=== PATIENT | female | born 1995 | race Caucasian/White ===

== ENCOUNTER 2020-12-04 16:18 | Outpatient (REF) | payer MEDICAID, SELFPAY | END 2020-12-04 16:19 | disposition home or self-care (01) | LOC: HO.LAB 16:18 | PROVIDERS: Visit Provider Internal Medicine | DX: Z20.822 Contact with and (suspected) exposure to COVID-19 (principal) | CPT/HCPCS: 36415; C9803; U0003 ==

== ENCOUNTER 2022-10-05 13:19 | Outpatient (REF) | payer MEDICAID, SELFPAY ==
--- NOTE | ~2022-10-05 | US_ITS ---
EXAMINATION: US DIAGNOSTIC ULTRASOUND BREAST, RIGHT US DIAGNOSTIC ULTRASOUND BREAST, LEFT CLINICAL INFORMATION: 27-year-old with chronic intermittent milky/greenish nipple discharge since approximately 3 years ago. Small palpable area of fullness noted by patient 12:00 position right breast. No prior breast imaging. COMPARISON: None. TECHNIQUE: Ultrasound of both breasts is performed using grayscale imaging and color Doppler without and with harmonics. Bilateral retroareolar and circumferential periareolar imaging is performed. In addition, focal targeted imaging right breast in the area of palpable concern is performed. FINDINGS: Right: There is no focal suspicious finding. There is no solid mass, architectural abnormality, duct ectasia, or edema in the soft tissue planes. There is an incidental simple cyst at site of palpable concern 12:00 position anterior breast measuring approximately 0.7 x 0.4 cm. Cyst is anechoic and shows increased through-transmission of sound and no color flow. Left: There is no focal suspicious finding. There is no cystic or solid mass, architectural abnormality, duct ectasia, or edema in the soft tissue planes. Results are discussed with the patient at time of visit. US/US breast LT limited IMPRESSION: Right: -Incidental simple at site of palpable concern 12:00 position, measuring 0.7 x 0.4 cm. Left: -Unremarkable left breast ultrasound. ASSESSMENT: BI-RADS 2: Benign RECOMMENDATION: 1. Patient's chronic bilateral milky/green nipple discharge may be correlated with laboratories for possible systemic hormonal etiology. 2. Otherwise, routine annual screening mammography, beginning age 40, or earlier as clinical risk factors warrant. This patient's information was entered into a reminder system with a target due date for their next mammogram.
--- NOTE | ~2022-10-05 | US_ITS ---
EXAMINATION: US DIAGNOSTIC ULTRASOUND BREAST, RIGHT US DIAGNOSTIC ULTRASOUND BREAST, LEFT CLINICAL INFORMATION: 27-year-old with chronic intermittent milky/greenish nipple discharge since approximately 3 years ago. Small palpable area of fullness noted by patient 12:00 position right breast. No prior breast imaging. COMPARISON: None. TECHNIQUE: Ultrasound of both breasts is performed using grayscale imaging and color Doppler without and with harmonics. Bilateral retroareolar and circumferential periareolar imaging is performed. In addition, focal targeted imaging right breast in the area of palpable concern is performed. FINDINGS: Right: There is no focal suspicious finding. There is no solid mass, architectural abnormality, duct ectasia, or edema in the soft tissue planes. There is an incidental simple cyst at site of palpable concern 12:00 position anterior breast measuring approximately 0.7 x 0.4 cm. Cyst is anechoic and shows increased through-transmission of sound and no color flow. Left: There is no focal suspicious finding. There is no cystic or solid mass, architectural abnormality, duct ectasia, or edema in the soft tissue planes. Results are discussed with the patient at time of visit. US/US breast RT limited IMPRESSION: Right: -Incidental simple at site of palpable concern 12:00 position, measuring 0.7 x 0.4 cm. Left: -Unremarkable left breast ultrasound. ASSESSMENT: BI-RADS 2: Benign RECOMMENDATION: 1. Patient's chronic bilateral milky/green nipple discharge may be correlated with laboratories for possible systemic hormonal etiology. 2. Otherwise, routine annual screening mammography, beginning age 40, or earlier as clinical risk factors warrant. This patient's information was entered into a reminder system with a target due date for their next mammogram.
== END 2022-10-05 13:20 | disposition home or self-care (01) ==
LOC: HO.MAMMO 13:19
PROVIDERS: PCP General Practice; Visit Provider Internal Medicine
DX: N63.15 Unspecified lump in the right breast, overlapping quadrants (principal); N64.52 Nipple discharge
CPT/HCPCS: 76642

== ENCOUNTER 2023-10-12 11:10 | Outpatient (REF) | payer MEDICAID, SELFPAY ==
--- NOTE | ~2023-10-12 | XR_ITS ---
EXAMINATION: XR CHEST CLINICAL INFORMATION: Estimated wheezing COMPARISON: None available. TECHNIQUE: 2 views of the chest were obtained. FINDINGS: No significant abnormality is noted involving the heart, lungs, mediastinum, bony thorax or soft tissues. XR/XR chest 2V IMPRESSION: Unremarkable chest examination.
[2023-10-12 13:35] LABS: Estimated Average Glucose 100 mg/dL; Hemoglobin A1c % 5.1 % (<6.0)
[2023-10-12 13:43] LABS: Alanine Aminotransferase 11 U/L (0-31); Albumin Level 4.6 g/dL (3.5-5.0); Alkaline Phosphatase 94 U/L (39-117); Anion Gap 9 (12-20); Aspartate Amino Transferase 17 U/L (5-31); Bilirubin Total 0.7 mg/dL (0.0-1.0); Blood Urea Nitrogen 9 mg/dL (9-16); Carbon Dioxide 27 mmol/L (22-29); Chloride 106 mmol/L (96-108); Cholesterol 171 mg/dL (<200); Estimated Glomerular Filt Rate > 60; Glucose Random 83 mg/dL (60-115); HDL Cholesterol 53 mg/dL (>40); LDL Cholesterol Calculated 108 mg/dL (<100); Potassium 4.2 mmol/L (3.3-5.1); Sodium 138 mmol/L (135-145); Total Protein 8.2 g/dL (6.5-8.0); Triglycerides 51 mg/dL (<150)
[2023-10-14 10:23] LABS: TS Negative Control Passed; TS Panel A 0; TS Panel B 0; TS Positive Control Passed; TSpotTB Negative (Negative)
== END 2023-10-12 11:11 | disposition home or self-care (01) ==
LOC: HO.HHCL 11:10
PROVIDERS: Visit Provider General Practice
DX: Z02.1 Encounter for pre-employment examination (principal); Z11.1 Encounter for screening for respiratory tuberculosis; R06.2 Wheezing
CPT/HCPCS: 36415; 71046; 80053; 80061; 83036; 86481

== ENCOUNTER 2025-08-01 14:01 | Outpatient (REF) | payer MEDICAID, SELFPAY ==
--- OUTSIDE RECORDS SUMMARY | 2017-08-11 09:00 | XMS_ITS | Continuity of Care Document ---
Author Organization Formerly [facility] Address [address] [place] [address] Phone Care Team Providers Care Quality Systems Manager Name Role Phone Christiano Bazzi MD, Tarik Unavailable Unava ilable Allergies, Adverse Reactions, Alerts Substance Reaction Status Criticality No Known Allergies Active No Inform ation Medications Medication Instructions Dosage Effective Dates (start - stop) Status Comments loratadine 10 mg tablet take 1 tablet by oral route every day 10 MG - Active Problems Condition Type Effective Dates (start - stop) Clini kayce Status Comments No Known Problems Procedures Procedure Date OFFICE/OUTPATIENT VISIT, [facility] Advance Directives Directive Yes / No Effective Date File Name No Information Encounters Encounter Description Practice Location Reason(s) For Visit Diagnoses Date Provider Providers Copied on Encounter OFFICE/OUTPAT IENT VISIT, [facility], [address] [place], [place], [id number], [place] tel:[phone] Formerly [facility] cold symptoms (chief complaint)S td screen (chief complaint) Body mass index (BMI) 22.0-22.9, adultAcute URIEncounter for STD screening Christiano Montanez. [address], [place], [place], [id number], [place]. tel:[phone] Family History Family Member Type Diagnosis Age At Onset No Information Payers Payer name Insurance type Covered republican ID Authoriza tion(s) No Information Social History Type Description Quantity Date Captured Comments Alcohol Use Details yumiko Caffeine Use Details Unknown Tobacco Use Status No Information Smoking Status Never smoker Non-Smoking Tobacco Use Details : No Details Available : No Details Available Sex Female Vital Signs Date / Time: Height Weight BMI Pulse Rate Blood Pressure Temperature Respiratory Rate Body Surface Area Head Circumference Head Circ. Percentile Wt./Jose. Percentile BMI percentile Pulse Ox Inhaled Ox 1:12 PM 61.75 in 56.245 kg (124.00 lbs) 22.8 6 kg/m eter (2) 88 /min 119/81 mm[Hg] 99.50 F 1.57 meter(2) 98 % Chief Complaint And Reason For Visit From encounter dated '08/11/2017 13:00'. cold symptoms (chief complaint). Description: Onset: 4 days ago. The problem has become gradually worse. Relieving factors include decongestants. Associated symptoms include nasal congestion, rhinitis and sore throat. Pertinent negatives include chills, cough and fever. Additional information: (L) EAR DISCOMFORT took XL3 +ear pain. Std screen (chief complaint). Description: Patient with previously tested positive for herpes, no other hx of STDs. Denies symptoms, is sexually acitve and uses protection. Reason For Referral Reason For Referral No Information Plan Of Treatment Date Type Action Status Goal PAP. Due on due Goal Lifestyle education regardin g diet completed Future Order: Lab Order RPR ([id number]), Appointment on: Ordered Future Order: Lab Order HIV 1,2 Ag/Ab w/reflex ([id number]), Appointment on: Ordered Future Order: Lab Order GC/CT Am plification ([id number]), Appointment on: , Collected on: Ordered History Of Present Illness Encounter Date Complaint History Of Prese nt Illness cold symptoms Onset: 4 days ag o. The problem has become gradually worse. Relieving factors include decongestants. Associated symptoms include nasal congestion, rhinitis and sore throat. Pertinent negatives include chills, cough and fever. Additional information: (L) EAR DISCOMFORT took XL3 +ear pain. Std screen Patient with pre viously tested positive for herpes, no other hx of STDs. Denies symptoms, is sexually acitve and uses protection. Functional Status Date Functional Assessmen t No Information Instructions Date Instruction Additional Infor carmen Lifestyle education regarding di et Related to Body mass index (BMI) 22.0-22.9, adult Assessments Type Assessment Date assessment Body mass index (BMI) 22.0-22.9, adult assessment Acute URI assessment Encounter for STD screening impression Acute URI will harrison mo sypmtomatic treatment with tylenol/nsaids for sore throat impression Per pt. request Patient Care Teams Name Effective Dates (start - stop) Status Members No Information
--- OUTSIDE RECORDS SUMMARY | 2025-08-01 17:52 | XMS_ITS | Encounter Summary ---
Author Organization [employer] Address [address] [place] [address] Care Team Providers Care Farm Equipment Engineer Name Role Phone Maria Eugenia Thrasher MD Primary Care Provider [phone] Reason for Visit * Reason Onset Date Comments Walk-In 08/01/2025 Encounter Details Date Type Department Care Team ([facility] st Contact Info) Description 08/01/2025 Telephone [facility] [address] [place] [address] Rebekah Clarke RN [address] [place] [address] Walk-In Social History Tobacco Use Types Packs/Day Years Used Date Smoking Tobacco: Never Smokeless Tobacco: Never Alcohol Use Standard Drinks/Week Comments Never 0 (1 standard drink = 0.6 oz pur e alcohol) Alcohol Answer Date Recorded How often do you have a drink containing alcohol ? 2 02/04/2025 How many drinks containing a lcohol do you have on a typical day when you are drinking? 1 02/04/2025 How often do you have six or more drinks on one occasion? 0 02/04/2025 Depression Answer Date Recorded Patient Health Questionnaire-9 Score 4 02/04/2025 Patient Health Questionnaire-9 Score 4 02/04/2025 Last PHQ-9: Questionnaire Data Not on file 0 02/04/2025 Housing Stability Answer Date Recorded What is your housing situation today? I have maria isabel maloney 10/04/[address] you li ve. Do you have problems with any of the following? Pests such as bugs, ants, or mice 10/04/2024 Food Insecurity Answer Date Recorded Within the past 12 months, y ou worried that your food would run out before you got money to buy more: Never True 09/26/2023 Within the past 12 months,th e food you bought just didn't last and you didn't have enough money to get more: Never True 04/2023 Transportation Answer Date Recorded In the past 12 months, has l ack of transportation kept you from medical appts, meetings, work or from getting things needed for daily living? No 10/04/2024 Intimate Partner Violence Answer Date R ecorded Within the last year, have y ou been afraid of your partner or ex-partner? 2 02/04/2025 Within the last year, have y ou been humiliated or emotionally abused in other ways by your partner or ex-partner? 2 Within the last year, have y ou been kicked, hit, slapped, or otherwise physically hurt by your partner or ex-partner? 2 02/04/2025 Within the last year, have y ou been raped or forced to have any kind of sexual activity by your partner or ex-partner? 2 02/04/2025 Utilities Answer Date Recorded In the past 12 months, has t he electric, gas, oil or water company threatened to shut off services in your home? No 09/26/2023 Depression Answer Date Recorded Patient Health Questionnaire-2 Score 2 02/04/2025 Internet Access Answer Date Recorded Internet Access Q1 Yes 10/04/2024 Internet Access Q2 Not on file 10/04/2024 Comments No Sex and Gender Information Value Date Recorded Sex Assigned at Female 09/20/2022 10:16 AM EDT Legal Sex Female 10:16 AM EDT Gender Identity Female 09/20/2022 10:16 AM EDT Sexual Orientation Straight 09/20/2022 10 :16 AM EDT documented as of this encounter Miscellaneous Notes * Telephone Encounter - Rebekah Clarke RN - 08/01/2025 1:45 PM EDT Pt. Walked in reporting + positive test at home yesterday. Reports LMP around July 10. Pt. Reports nausea x 4 days, one episode of vomiting today after drinking coffee. Pt. Also reportssome dizziness when walking, changing positions x 2 weeks. No dizziness at rest. Pt. Reports she had nexplanon put in February and has been having regular monthly periods since. This is pt.'s 2nd . Pt. Has been taking prenatals daily and does not need rx. Pt. Would like referral to [facility] ob[facility] if HCG is positive for care. Pt. Will go to lab now to get blood drawn and will accessresults via [employer], login confirmed Advised pt. To call clinic for or seek emergency care for vomiting >6 times/ day, unable to keepanything down, severe cramping or vaginal bleeding and she verbalizes understanding documented in this encounter Plan of Treatment Scheduled Orders Name Type Priority Associated Diagnoses Orde r Schedule hCG, Total, Quantitative Lab Routine Positive test Expected: 08/01/2025 (Approximate), Expires: 08/01/2026 documented as of this encounter Visit Diagnoses Diagnosis Positive test examination or test, positive result documented in this encounter Additional Health Concerns Assessment Noted Time PHQ-9 Depression Total Score: 4 02/05/20 25 3:06 PM EDT documented as of this encounter Care Teams Farm Equipment Engineer Relationship Specialty Start Date End Date Maria Eugenia Thrasher MD [address] [place] [address] PCP - General Family Medicine 05/14/22 documented as of this encounter
--- OUTSIDE RECORDS SUMMARY | 2025-08-01 17:52 | XMS_ITS | Clinical Summary ---
Author Organization [employer] Address 75 [facility] 7t [place] [address] Care Team Providers Care Greens Or Grounds Superintendent Name Role Phone Maria Eugenia Thrasher MD Primary Care Provider [phone] Allergies No known active allergies Medications Blood Pressure Monitoring (Blood Pressure Cuff) miscIndications: Elevated blood pressure reading in office without diagnosis of hypertension For use to monitor blood pressure daily 1 each 2 Active levonorgestrel-e thinyl estradiol (Aviane, Alesse, Lessina) 0.1-20 MG-MCG tablet Take 1 tablet by mouth in the morning. 84 tablet 3 Active busPIRone (Buspar) 5 MG tablet Take 2 tablets (10 mg) by mouth if needed each day (anxiety). 120 tablet 3 3 Active fluticasone (Flovent HFA) 110 MCG/ACT inhaler Inhale 1 puff every 12 (twelve) hours. 12 g 11 5 Active albuterol (ProAir HFA) 108 (90 Base) MCG/ACT inhaler Inhale 2 puffs every 4 (four) hours if needed for wheezing. 18 g 11 5 Active albuterol (2.5 MG/3ML) 0.083% nebulizer solution inhale 3 milliliter by nebulization route every 6 hours as needed 75 mL 11 5 Active 28-0.8 MG tablet Take 1 tablet by mouth Once per day. 90 tablet 3 5 026 Active Active Problems Problem Noted Date Diagnosed Date Family planning counseling 02/04/2025 Assessment & Plan (02/04/2025 3:11 PM EDT): Discussed cessation of marijuana smoking and alcohol Start PNV today Chest pain made worse by breathing 06/01/2024 Costochondritis 06/01/2024 Assessment & Plan (06/01/2024 3:58 PM EDT): Some localized tenderness to left sternum Trial ibuprofen 800 mg tid prn Rtc for worsening symptoms for failure to resolve Moderate asthma 06/01/2024 Assessment & Plan (02/04/2025 3:12 PM EDT): Continue Flovent BID, rinse mouth after usage Utilize rescue inhaler q 4-6 hours ED/UC return precautions Assessment & Plan (06/01/2024 3:57 PM EDT): Encouraged pt to abstain from smoking canibus, pt agreeable, Resume flovent BID, rinse out mouth after usage Utilize rescue inhaler q 4-6 hours prn. If symptoms worsen or fail to resolve rtc. Anxiety 02/24/2024 Assessment & Plan (02/04/2025 3:11 PM EDT): Continue f/u with therapist Declines medication renewal, feels mostly stable for now Assessment & Plan (02/24/2024 3:20 PM EDT): Continue f/u with therapist Housing or economic circumstance 10/05/2023 Palpitation 04/13/2023 Assessment & Plan (04/13/2023 4:25 PM EDT): TSH 1.82 10/2022 Will check CBC today Ordered 72 hour Holter monitor to rule out arrythmia Encounter for removal and reinsertion of Nexplan on 02/25/2023 Screening for cervical cancer 02/22/2023 Surveillance of implantable subdermal contracept sophia 02/22/2023 Assessment & Plan (04/13/2023 4:27 PM EDT): Use low dose OCPs to manage irregular periods/spotting on Nexplanon if needed Vitamin D deficiency 11/09/2016 Resolved Problems Problem Noted Date Diagnosed Date Resolved Date Mild persistent asthma without complication 11/10/2022 02/04/2025 Assessment & Plan (02/24/2024 3:20 PM EDT): Continue Flovent Continue ELDER PCV 20 today Assessment & Plan (04/13/2023 3:19 PM EDT): Continue Flovent Continue ELDER Encounters Date Type Department Care Team Description 08/01/2025 Orders Only [facility] MEDICINE [address] [place] [address] Maria Eugenia Thrasher MD 08/01/2025 Telephone [facility] MED[facility]INE [address] [place] [address] Rebekah Clarke RN Walk-In 08/01/2025 Travel from Last 3 Months Immunizations Immunization Administration Dates Next Due DTaP 01/21/2000, 7,1996,08/16,1996 HPV, Bivalent 04/21/2010,09/18/2009,04/25/2009 Hep B, adult 1996,1996,1996 Hib (HbOC) 01/27/2000,1996,1996 IPV 01/27/2008,03/19/2006,1996 Influenza injectable quadriv alent IIV4 with preservative 09/23/2015 Influenza injectable quadriv alent preservative free 10/03/2023,08/29/2020 Influenza live intranasal trivalent 09/03/2013 Influenza, live, intranasal 09/03/2013 MMR 01/27/2000,02/13/1997 Pfizer Covid-19 Vaccine 12+ yo-sucrose (Orr Cap) 07/22/2022,06/24/2022 Pneumococcal Conjugate PCV 20 02/24/2024 Pneumococcal Polysaccharide PPSV23 08/15/2019 Tdap 06/05/2019,09/30/2015,04/25/2009 Varicella 04/25/2009,04/24/2003 Social History Tobacco Use Types Packs/Day Years Used Date Smoking Tobacco: Never Smokeless Tobacco: Never Tobacco Cessation:Counseling Given: Not Answered Alcohol Use Standard Drinks/Week Comments Never 0 [...] Q2 Not on file 10/04/2024 Comments No Intention Date Recorded Wants to become (finding) 02/04 Sex and Gender Information Value Date Recorded Sex Assigned at Female 09/20/2022 10:16 AM EDT Legal Sex Female 10:16 AM EDT Gender Identity Female 09/20/2022 10:16 AM EDT Sexual Orientation Straight 09/20/2022 10 :16 AM EDT Last Filed Vital Signs Vital Sign Reading Time Taken Comments Blood Pressure 141/91 02/04/2025 1:28 PM EDT Pulse 99 02/04/2025 1:28 PM EDT Temperature 36 C (96.8 F) 02/04/2025 1:28 PM EDT Respiratory Rate 19 02/04/2025 1:28 PM EDT Oxygen Saturation 96% 06/01/2024 1:43 PM EDT Inhaled Oxygen Concentration - - Weight 87.5 kg (192 lb 12.8 oz) 02/04/2025 1:28 PM EDT Height 154.9 cm (5' 1 ) 02/04/2025 1:28 PM EDT Body Mass Index 36.43 02/04/2025 1:28 PM EDT Plan of Treatment Health Maintenance Due Date Last Done Comments Disability Screening 1996 COVID-19 Vaccine ( season) 2025 07/22/2022, 06/24/2022 Influenza Vaccine (#1) 2025 , 08/29/2020, 09/23/2015, Additional history exists SDOH Screening 10/04/2025 10/04/2024 Alcohol/Substance Use Screening 02/04/2026 02/04/2025 Depression Screening 02/04/2026 02/04/2025, 02/05/20 25 Family Planning (PISQ) 02/04/2026 02/04/2025 Tobacco Screening 02/04/2026 02/04/2025 Pap Smear 02/22/2026 02/22/2023, 02/22/2023 DTaP/Tdap/Td Vaccines (9 - Td or Tdap) 06/05/2029 06/05/2019, 09/30/2015, 04/25/2009, Additional history exists Zoster Vaccines (1 of 2) 2046 RSV Patients and Patients Aged 60 years or older (1 - 1-dose 75+ series) 2071 Hepatitis B Vaccines Completed 1996, 1996, 1996 HIB Vaccines Completed 01/27/2000, 07/23, 1996 IPV Vaccines Completed 01/27/2008, 02/20, 1996 HPV Vaccines Completed 04/21/2010, 08/22, 04/25/2009 HIV Screening Completed 11/08/2022 Hepatitis C Screening Completed 11/08/2022 Pneumococcal Vaccine: Pediatrics (0 to 5 Years) and At-Risk Patients (6 to 49) Years Completed 02/24/2024, 08/15/2019 Hepatitis A Vaccines Aged Out No long er eligible based on patient's age to complete this topic Meningococcal B Vaccine Aged Out No l onger eligible based on patient's age to complete this topic Meningococcal Vaccine Aged Out No anna zana eligible based on patient's age to complete this topic RSV under 20 months Aged Out No longe r eligible based on patient's age to complete this topic Rotavirus Vaccines Aged Out No longer eligible based on patient's age to complete this topic Procedures Procedure Name Priority Date/Time Associated Diagnosis Comments HCG, TOTAL, QN Routine 08/01/2025 2:06 PM EDT THINPREP IMAGING SYSTEM PAP Routine 02/22/2023 2:59 PM EDT HEPATITIS C AB W/REFL TO HCV RNA, QN, PCR Routine 11/08/2022 2:27 PM EST Routine screening for STI (sexually transmitted infection) HIV 1/2 ANTIGEN/ANTIBODY, FOURTH GENERATION W/RFL Routine 11/08/2022 2:27 PM EST from Last 3 Months or Most Recently Relevant to Health Maintenance Results * hCG, Total, Quantitative (08/01/2025 2:06 PM EDT) HCG Quantitative <2 mIU/mL [facility] Comment:Weeks post LMP Appro ximate hCG(Last Menstrual Period) Range (mIU/ml)3 - 4 weeks 9 - 1304 - 5 weeks 75 - 2,6005 - 6 weeks 850 - 20,8006 - 7 weeks 4000 - 100,2007 - 12 weeks 11,500 - 289,99249 - 16 weeks 18,300 - 137,22864 - 29 weeks (2nd trimester) 1,400 - 53,95017 - 41 weeks (3rd trimester) 940 - 60,000The Patel B- hCG assay is used for the early detection ofpregnancy; it cannot be used to diagnose any conditionunrelated to . If a B-hCG level is not supportedby the clinical evidence, results should be confirmed by analternative method (qualitative urine hCG, for example). 08/01/2025 2:06 PM EDT 08/01/2025 4:03 PM EDT us Maria Eugenia Thrasher MD LAB BLOOD ORDERABLES Final Res ult [facility] [address] [place] [phone] * Thinprep TIS PAP (02/22/2023 2:59 PM EDT) Clinical Information: None given [facility] LMP: [phone] [facility] [place] [facility] Prev. PAP: NONE GIVEN [facility] Prev. BX: NONE GIVEN [facility] SOURCE: None given [facility] Statement Of Adequacy: [facility] Comment: Satisfactory for evaluation. Endocervical/transformation zone component present. Interpretation/ Result: Negative for intraepithelial lesion or malignancy. [facility] COMMENT: This Pap test has been evaluated with computer assisted technology. [facility] [place] [facility] Cytotechnologis t: [facility] Comment: MXD, CT (ASCP) CT screening location: [address] [address] (Always Message) [facility] Comment: EXPLANATORY NOTE: The Pap is a screening test for cervical cancer. It is not a diagnostic test and is subject to false negative and false positive results. It is most reliable when a satisfactory sample, regularly obtained, is submitted with relevant clinical findings and history, and when the Pap result is evaluated along with historic and current clinical information. 02/22/2023 2:59 PM EDT 02/23/2023 7:17 AM EDT Maria Eugenia Thrasher MD LAB PATHOLOGY ORDERABLES Final Result Performing Organization Address City/[facility]/ZIP Co de Phone Number [address], [facility] [place] [address] [facility] [place] [facility] [address] [place] [phone] * Hepatitis C Antibody with Reflex to HCV, RNA, Quantitative, Real-Time PCR (11/08/2022 2:27 PM EST) Hepatitis C Antibody NON-REACT SOPHIA NON-REACT SOPHIA [facility] Index 0.08 <1.00 [facility] Comment: HCV antibody was non-reactive. There is no laboratory evidence of HCV infection. In most cases, no further action is required. However, if recent HCV exposure is suspected, a test for HCV RNA (test code 71740) is suggested. For additional information please refer to http://education.GoChime/faq/PLO20k4 (This link is being provided for informational/ educational purposes only.) Blood Venous blood specimen / Unknown 11/08/2022 2:27 PM EST 11/08/2022 2:28 PM EST Result [facility] Maria Eugenia Thrasher MD LAB BLOOD ORDERABLES Final Res ult Performing Organization Address City/[facility]/ZIP Co de Phone Number [facility] [address], [place] [address] [facility] [place] [facility] [address] [place] [address], (Nl2) [place] [address] * HIV-1/2 Antigen and Antibodies, Fourth Generation, with Reflexes (11/08/2022 2:27 PM EST) HIV Antigen/Antibody, 4th Generation NON-REAC TIVE NON-REAC TIVE [facility] [place] [facility] Comment: HIV-1 antigen and HIV-1/HIV-2 antibodies were not detected. There is no laboratory evidence of HIV infection. PLEASE NOTE: This information has been disclosed to you from records whose confidentiality may be protected by state law. If your state requires such protection, then the state law prohibits you from making any further disclosure of the information without the specific written consent of the person to whom it pertains, or as otherwise permitted by law. A general authorization for the release of medical or other information is NOT sufficient for this purpose. For additional information please refer to http://education.GoChime/faq/LUF637 (This link is being provided for informational/ educational purposes only.) The performance of this assay has not been clinically validated in patients less than 2 years old. 11/08/2022 2:27 PM EST 11/08/2022 2:28 PM EST us Maria Eugenia Thrasher MD LAB BLOOD ORDERABLES Final Res ult [facility] [address], [place] [address] [facility] [place] [facility] [address] [facility], (Nl2) [place] [address] from Last 3 Months or Most Recently Relevant to Health Maintenance [place] [address] C3 Care Teams Greens Or Grounds Superintendent Relationship Specialty Start Date End Date Maria Eugenia Thrasher MD [address] [place] [id number] PCP - General Family Medicine 05/14/22
--- OUTSIDE RECORDS SUMMARY | 2025-08-01 17:52 | XMS_ITS | Encounter Summary ---
Author Organization [employer] Address [address] [facility] 7t [place] [address] Care Team Providers Care Cloth Finishing Range Operator Chief Name Role Phone Maria Eugenia Thrasher MD Primary Care Provider [phone] Encounter Details Date Type Department Care Team ([facility] st Contact Info) Description 04/22/2023 Orders Only [facility] MEDICINE [address] [place] [address] Maria Eugenia Thrasher MD [address] [place] [address] Palpitation (Primary Dx) Social History Tobacco Use Types Packs/Day Years Used Date Smoking Tobacco: Never Smokeless Tobacco: Never Alcohol Use Standard Drinks/Week Comments Never 0 (1 standard drink = 0.6 oz pur e alcohol) Depression Answer Date Recorded Patient Health Questionnaire-2 Score 2 04/13/2023 Comments Unknown Sex and Gender Information Value Date Recorded Sex Assigned at Female 09/20/2022 10:16 AM EDT Legal Sex Female 10:16 AM EDT Gender Identity Female 09/20/2022 10:16 AM EDT Sexual Orientation Straight 09/20/2022 10 :16 AM EDT COVID-19 Exposure Response Date Recorded In the last 10 days, have manuel lopez been in contact with someone who was confirmed or suspected to have Coronavirus/COVID-19? No / Unsure 04/13/2023 3:06 PM EDT documented as of this encounter Plan of Treatment Not on file documented as of this encounter Visit Diagnoses Diagnosis Palpitation- Primary Palpitations documented in this encounter Care Teams Cloth Finishing Range Operator Chief Relationship Specialty Start Date End Date Maria Eugenia Thrasher MD [address] [place] [address] PCP - General Family Medicine 05/14/22 documented as of this encounter
--- OUTSIDE RECORDS SUMMARY | 2025-08-01 17:52 | XMS_ITS | Encounter Summary ---
Author Organization [employer] Address [address] [facility] 7t [place] [address] Care Team Providers Care Computer Graphic Artist Name Role Phone Maria Eugenia Thrasher MD Primary Care Provider [phone] Encounter Details Date Type Department Care Team ([facility] st Contact Info) Description 02/25/2023 Orders Only [facility] MEDICINE [address] [place] [address] Maria Eugenia Thrasher MD [address] [place] [address] Bacterial vaginosis (Primary Dx) Social History Tobacco Use Types Packs/Day Years Used Date Smoking Tobacco: Never Smokeless Tobacco: Never Alcohol Use Standard Drinks/Week Comments Never 0 (1 standard drink = 0.6 oz pur e alcohol) Comments Unknown Sex and Gender Information Value [...] suspected to have Coronavirus/COVID-19? No / Unsure 02/22/2023 2:04 PM EDT documented as of this encounter Plan of Treatment Not on file documented as of this encounter Visit Diagnoses Diagnosis Bacterial vaginosis- Primary Unspecified vaginitis and vulvovaginitis documented in this encounter Care Teams Computer Graphic Artist Relationship Specialty Start Date End Date Maria Eugenia Thrasher MD [address] [place] [address] PCP - General Family Medicine 05/14/22 documented as of this encounter
--- OUTSIDE RECORDS SUMMARY | 2025-08-01 17:52 | XMS_ITS | Encounter Summary ---
Author Organization [employer] Address [address] [facility] 7t [place] [address] Care Team Providers Care Engraver Letter Name Role Phone Maria Eugenia Thrasher MD Primary Care Provider [phone] Encounter Details Date Type Department Care Team (Late st Contact Info) Description 08/01/2025 Orders Only [facility] MEDICINE [address] [place], [place] [phone] Maria Eugenia Thrasher MD [address] [place], [place] [phone] Social History Tobacco Use Types Packs/Day Years [...] the past 12 months, has t he [employer], gas, oil or water [employer] threatened to shut off services in your [...] AM EDT documented as of this encounter Plan of Treatment Not on file documented as of this encounter Procedures Procedure Name Priority Date/Time Associated Diagnosis Comments HCG, TOTAL, QN Routine 08/01/2025 2:06 PM EDT documented in this encounter Results * hCG, Total, Quantitative (08/01/2025 2:06 PM EDT) HCG Quantitative <2 mIU/mL [facility] Comment:Weeks post LMP Appro ximate hCG(Last Menstrual Period) Range (mIU/ml)3 - 4 weeks 9 - 1304 - 5 weeks 75 - 2,6005 - 6 weeks 850 - 20,8006 - 7 weeks 4000 - 100,2007 - 12 weeks 11,500 - 289,56598 - 16 weeks 18,300 - 137,44195 - 29 weeks (2nd trimester) 1,400 - 53,75396 - 41 weeks (3rd trimester) 940 - 60,000The Patel B- hCG assay is used for the early detection ofpregnancy; it cannot be used to diagnose any conditionunrelated to . If a B-hCG level is not supportedby the clinical evidence, results should be confirmed by analternative method (qualitative urine hCG, for example). 08/01/2025 2:06 PM EDT 08/01/2025 4:03 PM EDT us Maria Eugenai Thrasher MD LAB BLOOD ORDERABLES Final Res ult [facility] [address] [place] [phone] documented in this encounter Visit Diagnoses Not on filedocumented in this encounter Additional Health Concerns Assessment Noted Time PHQ-9 Depression Total Score: 4 02/05/20 25 3:06 PM EDT documented as of this encounter Care Teams Engraver Letter Relationship Specialty Start Date End Date Maria Eugenia Thrasher MD [address] [place] [address] PCP - General Family Medicine 05/14/22 documented as of this encounter
--- OUTSIDE RECORDS SUMMARY | 2025-08-01 17:52 | XMS_ITS | Encounter Summary ---
Author Organization [employer] Address [address] [facility] 7t [place] [address] Care Team Providers Care Felled Seam Operator Name Role Phone Maria Eugenia Thrasher MD Primary Care Provider [phone] Reason for Visit * Reason Onset Date Comments r/s appt 01/14/2023 Encounter Details Date Type Department Care Team ([facility] st Contact Info) Description 01/14/2023 Telephone [facility] MEDICINE [address] [place] [address] Maria Eugenia Thrasher MD [address] [place] [address] r/s appt Social History Tobacco Use Types Packs/Day Years [...] Recorded In the last 10 days, have yo u been in contact with someone who was confirmed or suspected to have Coronavirus/COVID-19? No / Unsure 12/28/2022 11:58 AM EST documented as of this encounter Miscellaneous Notes * Telephone Encounter - Victor Manuel Dejesus - 01/14/2023 9:14 AM EST Tc from pt requesting to r/s appt for Pap smear on 01/14/2023. Please contact pt at [phone] documented in this encounter Plan of Treatment Not on file documented as of this encounter Visit Diagnoses Not on filedocumented in this encounter Care Teams Felled Seam Operator Relationship Specialty Start Date End Date Maria Eugenia Thrasher MD [address] [place] [phone] PCP - General Family Medicine 05/14/22 documented as of this encounter
--- OUTSIDE RECORDS SUMMARY | 2025-08-01 17:52 | XMS_ITS | Encounter Summary ---
Author Organization [employer] Address [address] [facility] 7t [place] [address] Care Team Providers Care Junior Estimator Name Role Phone Maria Eugenia Thrasher MD Primary Care Provider [phone] Encounter Details Date Type Department Care Team (Latest Contact Info) Description 08/01/2025 Travel Social History Tobacco Use Types Packs/Day Years [...] documented as of this encounter Care Teams Junior Estimator Relationship Specialty Start Date End Date Maria Eugenia Thrasher MD [address] [place] [address] PCP - General Family Medicine 05/14/22 documented as of this encounter
== END 2025-08-01 14:02 | disposition home or self-care (01) ==
LOC: HO.HHCL 14:01
PROVIDERS: PCP General Practice; Visit Provider General Practice
DX: Z32.01 Encounter for pregnancy test, result positive (principal)
CPT/HCPCS: 36415; 84702